=== PATIENT | male | born 1995 | race Caucasian/White ===

== ENCOUNTER 2021-01-06 20:36 | Emergency (ER) | payer MEDICAID, SELFPAY ==
[2021-01-06 20:37] VITALS: BP 164/94; PULSE 115; RESP 16; TEMP 37.4; O2SAT 97; BMI 31.6
[2021-01-06 21:57] VITALS: PULSE 105; O2SAT 100
--- NOTE | 2021-01-06 23:14 | EDS_ITS ---
HPI History of Present Illness Chief Complaint: Cellulitis Informant: patient Onset/Context/Timing Onset: Today Current Severity: Moderate Maximum Severity: Moderate Narrative Narrative: Patient presents secondary to 2 cutaneous abscesses on his left arm. He states they were not present yesterday but were there when he woke this morning. He states he was seen at [facility] and given a prescription for an antibiotic. He has not yet picked this up. He does not understand why the wounds were not cored out. Patient did open and drain the lesions him self. He does have surrounding erythema. He denies fever or chills. [facility] Medical History MRSA (methicillin resistant Staphylococcus aureus) Home Medications sulfamethoxazole-trimethoprim 2 tab PO BID #28 tablet 03/29/16 [Rx Last Taken Unknown] cephalexin 500 mg PO Q6H 10 Days #40 cap 01/06/21 [Rx Last Taken Unknown] Allergy/AdvReac Type Severity Reaction Status Date / Time No Known Allergies Allergy Verified 01/06/21 20:41 Social History Smoking Status: Current every day smoker tobacco type: cigarettes ROS ROS ED Constitutional Constitutional ED: Denies chills or fever(s) Eyes Eyes: Denies blurry vision ENT ENT ED: Denies rhinorrhea or sore throat Cardiovascular Cardiovascular: Denies chest pain Respiratory/Chest Respiratory/Chest: Denies cough or dyspnea Gastrointestinal Gastrointestinal: Denies abdominal pain Integumentary Reports abscess Neurologic Neurologic: Denies headache(s), paresthesias or weakness Allergic/Immunologic Allergic/Immunologic ED: Denies urticaria EXAM Physical Exam Const Vital Signs: 01/06/21 20:37 01/06/21 21:57 Temperature 99.3 F H Temperature Source Temporal Pulse Rate 115 H 105 H Respiratory Rate 16 Blood Pressure 164/94 H Blood Pressure Mean 117 Pulse Ox 97 100 Oxygen Delivery Method Room Air Positive well nourished and well developed General Appearance ED: well developed Eyes PERRL and EOMs intact bilaterally Neck supple Chest Wall inspection of chest normal and palpation of chest normal Resp normal respiratory effort and clear to auscultation bilaterally Cardio regular rhythm Rate: tachycardic GI normal to inspection, nondistended, normoactive bowel sounds and non-tender Palpation: soft Extremity Extremity Narrative: 2 open, drained abscesses noted on the left arm. The lesion on the back of the left upper arm measures 1 x 0.5 cm. There is 10 x 15 cm area of surrounding erythema. The lesion on the left forearm measures 1 x 0.5 cm. There is an area of erythema measuring 10 x 7 cm. There is no fluctuance noted over either wound. There is mild serosanguineous drainage. Full range of motion of the extremity without difficulty. No joint tenderness. Neuro oriented x3 Sensorium / Orientation: alert MDM MDM MDM Narrative Medical decision making narrative: Patient was given Bactrim and Keflex here. Wounds were cleansed and 1/4 inch iodoform gauze packed in each wound. Dressing applied. Patient referred to plastics for follow-up as needed. Prescription for Bactrim is already at the pharmacy for him. I did send prescription for Keflex as well. Discharge Plan Triage Chief Complaint: Cellulitis ED Provider: May Carney Dx/Rx/DC Orders Clinical Impression: Cellulitis, Abscess Instructions: ED Abscess Incision And Drainage, ED Cellulitis Prescriptions: New cephalexin 500 mg capsule 500 mg PO Q6H 10 Days Qty: 40 RF: 0 No Action sulfamethoxazole-trimethoprim 1 TABLET tablet 2 tab PO BID Qty: 28 RF: 0 Primary Care Provider: Care Physician,No Primary Referrals: Prakash Melendez MD [STAFF PHYSICIAN] - As Needed Care Physician,No Primary [Primary Care Provider] - Disposition Disposition: Home, Self Care Discharge Date/Time: 01/06/21 23:30
[2021-01-06] MEDS: Cephalexin 250 MG Capsule 500 MG PO (23:21)
[2021-01-06] MEDS: Smz/Tmp Ds Tablet 1 TABLET PO (23:21)
== END 2021-01-06 23:30 | disposition home or self-care (01) ==
PROVIDERS: Emergency Provider Emergency Medicine
DX: L02.414 Cutaneous abscess of left upper limb (principal); L03.114 Cellulitis of left upper limb; Z86.14 Personal history of Methicillin resistant Staphylococcus aureus infection; F17.210 Nicotine dependence, cigarettes, uncomplicated
CPT/HCPCS: 99282